=== PATIENT | female | born 1930 | race Two or more races ===

== ENCOUNTER 2020-09-25 10:08 | Outpatient (CLI) | payer MEDICARE, OTHER ==
[~2020-09-25 10:08] MED LIST: AMLODIPINE BESYL5 MG ORAL; CRESTOR10 M2 ORAL; DEXILANT60 MG ORAL; ESCITALOPRAM OX10 MG ORAL; LASIX20 M1 ORAL; LIALDA1.2 GM ORAL; LINZESS145 MCG PO; LISINOPRIL20 MG ORAL; [UNRECOGNIZED DRUG - REMARK]
[2020-09-25 10:33] VITALS: BP 154/70
--- NOTE | 2020-09-25 22:29 | Consultation ---
DATE OF CONSULTATION: 09/25/2020 CONSULTING PHYSICIAN: Bam Dobson M.D. CHIEF COMPLAINT: Abdominal pain. HISTORY OF PRESENT ILLNESS: This is an 89-year-old female, who is very uncomfortable. She states since gar, she had severe constipation to the point that she had a hard stool coming out. She had to use her hand manually to remove the stools. Recently, that problem has actually improved and she is having some loose stools. She four times a day. Bleeding has subsided, but she is still having bloating and abdominal pain. PAST MEDICAL HISTORY: 1. Hypertension. 2. History of peripheral edema. 3. Depression. 4. Questionable ulcerative colitis, currently off of medication. ALLERGIES: No known drug allergies. MEDICATIONS: Please see medication reconciliation list. SOCIAL HISTORY: The patient denies any tobacco, alcohol, or drug abuse. FAMILY HISTORY: Noncontributory. REVIEW OF SYSTEMS: As above. PHYSICAL EXAMINATION: VITAL SIGNS: Temperature 97.4, blood pressure is 98/74, pulse is 80, respirations 20. HEENT: Normocephalic and atraumatic. Sclerae anicteric. NECK: Supple. No evidence of obvious lymphadenopathy. CARDIOVASCULAR: Regular rate and rhythm. Plus S1, S2. LUNGS: Clear to auscultation bilaterally. ABDOMEN: Positive bowel sounds. Soft and nontender. No rebound. No guarding. No peritoneal sign. EXTREMITIES: No cyanosis, no clubbing, no edema. ASSESSMENT AND PLAN: This is an 89-year-old female with change in bowel habit, bleeding for a short period of time, which has resolved. At this time, the patient does not want to have another colonoscopy. She is off of ulcerative colitis medication at this time. Our plan is to check her laboratories for today including CBC, CMP, ESR, and CRP to see if the patient has active colitis or she has evidence of anemia. We are going to start the patient on Align 1 tablet p.o. daily. We are also going to give the patient Anusol-HC cream for the time that she has the bleeding. The patient to return to clinic in one month for followup. Bamfan Dobson M.D. DR: Ronni JOB#: [id number] CC:
== END 2020-09-25 12:03 | disposition home or self-care (01) ==
LOC: PAN 10:08
DX: R10.9 Unspecified abdominal pain (principal); I10 Essential (primary) hypertension; F32.9 Major depressive disorder, single episode, unspecified
CPT/HCPCS: 99212